=== PATIENT | male | born 1950 | race Caucasian/White ===

== ENCOUNTER → 2016-07-14 | Day surgery (SDC) | payer MEDICARE, OTHER ==
[~2016-07-14] MED LIST: ADVIL200 M2 PO; ALLERGY SHOT; CENTRUM SILVER PO; MELATONIN5 M1 PO; MEVACOR PO; MILK THISTLE175 M2 PO; MOVE FREE; MULTI VITAMIN1 EACH PO; NABUMETONE PO; PRINIVIL10 MG PO; ROSUVASTATIN CA10 MG PO
--- NOTE | ~2016-07-14 | HP ---
Unit #: [id number] #: [id number] Patient: PALMA HOWARD [id number] [address] [place], [place] [address] [id number] O MR#: [id number] NAME: PALMA HOWARD ROOM: Age: 65 Sex: M Admission Date: 07/14/2016 : 1950 Attending Physician: Anselmo Villafana M.D. Primary Care Physician: Bill Peña M.D. HISTORY AND PHYSICAL HISTORY OF PRESENT ILLNESS Mr. Howard is a 65-year-old gentleman who is sent for his initial screening colonoscopy for colorectal cancer screening. He denies a family history of colorectal disease and is otherwise asymptomatic. PAST MEDICAL HISTORY Hypertension. PAST SURGICAL HISTORY Tonsillectomy. SOCIAL HISTORY , one child. Social alcohol drinker. Denies the use of tobacco. He is a retired teacher. FAMILY HISTORY Heart disease, gastric cancer. ALLERGIES Penicillin. CURRENT MEDICATIONS 1. Lisinopril. 2. Rosuvastatin. 3. He is on several [id number] vitamins and minerals. IMMUNIZATIONS Up to date. He has had a flu vaccine and a shingles vaccine. REVIEW OF SYSTEMS Otherwise unremarkable. PHYSICAL EXAMINATION GENERAL: Awake, alert and oriented. VITALS: Height 6'1", 200 pounds, vital signs stable. HEENT: Unremarkable. LUNGS: Clear. HEART: Regular rate and rhythm. ABDOMEN: Soft. EXTREMITIES: No edema. NEUROLOGIC: Grossly intact. ASSESSMENT/PLAN The patient is a 65-year-old gentleman who has been sent for initial Unit #: [id number] #: [id number] Patient: PALMA HOWARD screening colonoscopy. We discussed the procedure, including risks, benefits, complications and bowel prep. He understands and agrees to proceed. Dictated by Jazz Fuller/marly TD: 07/14/2016 15:01 JOB #: [id number] HISTORY AND PHYSICAL Page 1 of 1 X Anselmo Villafana MD HISTORY AND PHYSICAL
--- NOTE | ~2016-07-14 | OR ---
Unit #: [id number] #: [id number] Patient: PALMA L[address] [id number] [facility] [address] [facility]. [place], [place] [address] [id number] O MR#: [id number] NAME: PALMA LANE ROOM: Date of Procedure: 07/14/2016 Admission Date: 07/14/2016 Surgeon: Anselmo Villafana M.D. : 1950 Attending Physician: Anselmo Villafana M.D. Primary Care Physician: Edy Peña OPERATIVE REPORT PRIMARY CARE PHYSICIAN Dr. Edy Peña in [place], [place]. PREOPERATIVE DIAGNOSIS Colorectal cancer screening. POSTOPERATIVE DIAGNOSES Polyps x2. Benign prostatic hypertrophy. PROCEDURE PERFORMED Colonoscopy to cecum with cold biopsy forceps polypectomy x2. ANESTHESIA Monitored anesthesia. INDICATIONS FOR PROCEDURE A 65-year-old gentleman sent for an initial colorectal cancer screening. He is otherwise asymptomatic. Denies a family history of colorectal disease. DESCRIPTION OF PROCEDURE The patient was admitted to [facility], positively identified, and transported to the endoscopy suite. After appropriate monitoring and positioning, he was sedated by the nurse stage settings painter. On rectal examination, he had some hemorrhoidal skin tags, but no active hemorrhoidal disease. On digital examination, he had an enlarged prostate, but no hard nodules. Colonoscope passed through the anal verge throughout the extent of the colon to the cecum where the appendiceal orifice and ileocecal valve were photo-documented. On antegrade and retrograde visualization, he had a 5- to 6-mm polyp in the ascending colon, which was removed by cold biopsy forceps polypectomy, and then in the proximal transverse colon, there was a second polyp of about 6 to 8 mm that was removed by cold biopsy forceps polypectomy. There was adequate hemostasis. The rest of the endoscopic evaluation was unremarkable. The patient tolerated the procedure well and was transported to recovery in stable condition. Findings and postoperative instructions were discussed with his spouse. At this time, we will call him with results of pathological evaluation of the polyps when it becomes available and recommend followup at that time. Otherwise, he could resume his regular diet and medications. He was also recommended should he have any urinary symptoms, he should see a urologist because of his prostatic hypertrophy. Unit #: [id number] #: [id number] Patient: PALMA LANE Dictated by... Jazz Fuller/petar TD: 07/15/2016 06:15 JOB #: [id number] OPERATIVE REPORT Page 1 of 1 X Anselmo Villafana MD PROCEDURE OPERATIVE NOTE
== END | disposition home or self-care (01) ==
LOC: COPS 10:56
PROVIDERS: Specialist
PROC: 0DBK8ZX Excision of Ascending Colon, Via Natural or Artificial Opening Endoscopic, Diagnostic (ICD-10-PCS; principal; 2016-07-14 13:45)
PROC: 0DBL8ZX Excision of Transverse Colon, Via Natural or Artificial Opening Endoscopic, Diagnostic (ICD-10-PCS; 2016-07-14 13:45)
DX: Z12.11 Encounter for screening for malignant neoplasm of colon (principal); D12.3 Benign neoplasm of transverse colon; D12.2 Benign neoplasm of ascending colon; K64.4 Residual hemorrhoidal skin tags; N40.0 Benign prostatic hyperplasia without lower urinary tract symptoms; I10 Essential (primary) hypertension; E78.5 Hyperlipidemia, unspecified; Z79.899 Other long term (current) drug therapy; M54.30 Sciatica, unspecified side; Z79.1 Long term (current) use of non-steroidal anti-inflammatories (NSAID); Z82.49 Family history of ischemic heart disease and other diseases of the circulatory system; Z80.0 Family history of malignant neoplasm of digestive organs; Z88.0 Allergy status to penicillin
CPT/HCPCS: 88305; J2250